=== PATIENT | female | born 1990 | race Caucasian/White ===

== ENCOUNTER 2017-05-30 07:27 | Day surgery (SDC) | payer OTHER ==
[2017-04-26 16:33] VITALS: BMI 25.3
[2017-05-30] MEDS ORDERED: Lactated Ringer's 1,000 ML IV ONE (07:52)
[2017-05-30] MEDS ORDERED: Propofol 10 mg/ml Inj (20 ML) ONE (08:16)
[2017-05-30] MEDS ORDERED: Lidocaine 2% MPF (5 ml) Inj ONE (08:17)
[2017-05-30 08:40] VITALS: O2SAT 100
[2017-05-30 08:55] VITALS: BP 92/55; PULSE 68; RESP 15; TEMP 97.5
== END 2017-05-30 10:00 | disposition home or self-care (01) ==
LOC: H.ENDO 07:27
PROVIDERS: ATTEND Internal Medicine Gastroenterology
DX: K30 Functional dyspepsia (principal); K29.70 Gastritis, unspecified, without bleeding
CPT/HCPCS: 43239; 88305; J2704; J7120